=== PATIENT | female | born 2000 | race Caucasian/White ===

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

== ENCOUNTER 2019-06-13 15:53 | Emergency (ER) | payer OTHER ==
[2019-06-13 16:16] VITALS: BP 108/71
--- NOTE | 2019-06-13 16:59 | ED ---
Abdominal Pain/Female - HPI Summary HPI Summary: 19 yr old female with the complaint of lower abdominal pain. Her pain onset is over a week ago. Today pain is moderate and left sided in nature. It is associated with three loose stools today and emesis times one today. No fever or chills. She has a history of gluten intolerance. She has never seen a GI specialist. She has no radiation of her pain. - History of Current Complaint Chief Complaint: UCAbdominalPain Stated Complaint: ABDOMINAL PAIN Time Seen by Provider: 06/13/19 16:32 Hx Last Menstrual Period: 05/16/19 Pain Intensity: 2 Allergies/Adverse Reactions: Allergies Allergy/AdvReac Type Severity Reaction Status Date / Time azithromycin [From Zithromax] Allergy Hives Verified 06/13/19 16:05 Penicillins Allergy Hives Verified 06/13/19 16:05 EGGPLANT Allergy TONUE Uncoded 06/13/19 16:05 -EVANGELIST AND LIPS - ITCHY Home Medications: Home Medications Otc Laxative For Women 2 powder PRN 06/13/19 [History] PMH/Surg Hx/FS Hx/Imm Hx Endocrine/Hematology History: Denies: Hx Diabetes Cardiovascular History: Denies: Hx Hypertension, Hx Pacemaker/ICD History: Denies: Hx Renal Disease Sensory History: Denies: Hx Hearing Aid Psychiatric History: Denies: Hx Panic Disorder - Surgical History Surgery Procedure, Year, and Place: APPENDECTOMY. 07/02/17 -OPEN HEART- OPEN CORONARY ARTERY - NO IMPLANTS. 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 Denies: Traveled Outside the [place] in Last 30 Days - Family History Known Family History: Positive: None - Social History Alcohol Use: Rare Substance Use Type: Reports: None Smoking Status (MU): Never Smoked Tobacco Review of Systems Constitutional: Negative Positive: Abdominal Pain, Vomiting, Diarrhea, Nausea All Other Systems Reviewed And Are Negative: Yes Physical Exam Triage Information Reviewed: Yes Vital Signs On Initial Exam: Initial Vitals Temp Pulse Resp BP Pulse Ox 99 F 113 20 108/71 98 06/13/19 16:06 06/13/19 16:06 06/13/19 16:06 06/13/19 16:06 06/13/19 16:06 Vital Signs Reviewed: Yes Appearance: Positive: Well-Appearing, No Pain Distress Skin: Positive: Warm, Skin Color Reflects Adequate Perfusion Head/Face: Positive: Normal Head/Face Inspection Eyes: Positive: EOMI ENT: Positive: Normal ENT inspection Neck: Positive: Nontender Respiratory/Lung Sounds: Positive: Clear to Auscultation, Breath Sounds Present Cardiovascular: Positive: RRR. Negative: Murmur Abdomen Description: Positive: Other: - tender in the left lower abdomen. Musculoskeletal: Positive: Strength/ROM Intact Neurological: Positive: Normal, Sensory/Motor Intact, Alert, Oriented to Person Place, Time, CN Intact II-III Psychiatric: Positive: Normal Diagnostics - Vital Signs Vital Signs Temp Pulse Resp BP Pulse Ox 06/13/19 16:06 99 F 113 20 108/71 98 - Laboratory Lab Statement: Any lab studies that have been ordered have been reviewed, and results considered in the medical decision making process. Abdominal Pain Fem Course/Dx - Diagnoses Provider Diagnoses: Left lower quadrant abdominal pain Discharge ED - Sign-Out/Discharge Documenting (check all that apply): Patient Departure All imaging exams completed and their final reports reviewed: No Studies - Discharge Plan Condition: Good Disposition: HOME-RECOMMEND TO ED Patient Education Materials: Abdominal Pain (ED) Referrals: [facility] [Outside] No Primary Care Phys,NOPCP [Primary Care Provider] - Additional Instructions: YOU NEED TO GO TO THE ER NOW FOR FURTHER TESTING AND WORK UP OF YOUR ABDOMINAL PAIN.
== END 2019-06-13 17:12 | disposition home health service (06) ==
LOC: UCCORT 15:53
DX: R10.32 Left lower quadrant pain (principal); R11.2 Nausea with vomiting, unspecified; R19.7 Diarrhea, unspecified; Z88.0 Allergy status to penicillin; Z88.1 Allergy status to other antibiotic agents; Z91.012 Allergy to eggs
CPT/HCPCS: 81003; 84702; 99212; G0463

== ENCOUNTER 2019-08-16 11:30 | Emergency (ER) | payer OTHER ==
--- OUTSIDE RECORDS SUMMARY | 2019-08-16 11:46 | XMS REPORT | Summary of Care ---
:2000 Author Organization [facility] Address [address] [place] [address] Care Team Providers Name Role Phone Felicia Lopez MD Primary Care Provider Reason for Visit Reason Comments Post-op Encounter Details Date Type Department Care Team Description 07/05/2019 Office Visit [place] [facility] Heidy Bright, History of ovarian cystectomy (Primary Dx); [employer] [facility]ARR[facility] Amaro History of laparoscopy [address] [place] [phone] Allergies Active Allergy Reactions Severity Noted Date Comments Penicillins Hives 06/14/2019 Azithromycin Hives 06/14/2019 documented as of this encounter (statuses as of 07/05/2019) Medications Medication Sig Dispensed Refills Start Date End Date Status Norgestimate-Eth Take 1 tablet by 30 tablet 11 06/18/2019 06/17/2020 Active Estradiol 0.25-35 mouth daily MG-MCG Oral Tablet (ORTHO-CYCLEN) documented as of this encounter (statuses as of 07/05/2019) Active Problems Problem Noted Date Deficiency of von Willebrand factor 06/15/2019 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 Never 06/14/2019 How many drinks containing alcohol do you have on a typical Not asked day when you are drinking? How often do you have six or more drinks on one occasion? Not asked Sex Assigned at Date Recorded Not on file Job Start Date Occupation Industry Not on file Not on file Not on file Travel History Travel Start Travel End No recent travel history available. documented as of this encounter Last Filed Vital Signs Vital Sign Reading Time Taken Comments Blood Pressure 112/68 07/05/2019 11:51 AM EST Pulse 99 07/05/2019 11:51 AM EST Temperature - - Respiratory Rate - - Oxygen Saturation - - Inhaled Oxygen Concentration - - Weight 66.2 kg (146 lb) 07/05/2019 11:51 AM EST Height - - Body Mass Index 25.06 06/14/2019 3:28 PM EST documented in this encounter Progress Notes Heidy Bright MD - 07/05/2019 11:45 AM EST PATENT COUNSEL PostOp Visit CC/HPI/ROS: Angie Farfan is a 19 y.o. G0 here 18 days status post laparoscopic left ovarian cystectomy for large symptomatic ovarian cyst with no complaints today. Pain well controlled without pain medications. Reports normal urination and bowel movements. Denies drainage from abdominal incision(s), though states last week she saw her PCP because she was concerned about infection and PCP prescribed a topical ointment which she used for 7 days. Vaginal discharge: daily spotting - (re)started OCPs on day of discharge from hospital, would be expecting her period this week if she hadn't started the pills. A focused PATENT COUNSEL/ ROS was negative. History The patient's past medical/surgical/social/family histories, medications and allergies were reviewedand updated in [employer] at this visit. Pathology reviewed 06/17/19 LEFT OVARIAN CYST WALL, CYSTECTOMY: CORPUS LUTEUM CYST AND CYSTIC FOLLICLES. Objective: Visit Vitals BP 112/68 Pulse 99 Wt 146 lb (66.2 kg) LMP 06/18/2019 (Exact Date) BMI 25.06 kg/m General: This is a healthy-appearing female, well groomed in no apparent distress. Psych: Alert and oriented x3 and pleasant. Normal affect, good mood. Neuro: Moves all extremities, normal gait, CN 2-10 grossly intact Integument: Dry, warm, no edema, erythema or lesions. Abdomen: Well-healed infraumbilical/RLQ/LLQ incisions Assessment: Encounter Diagnoses Name Primary? History of ovarian cystectomy Yes History of laparoscopy Plan: 1. Continue current pain regimen, continue OCPs for suppression of ovulation 2. Lifting restrictions and pelvic rest to continue for next 3 weeks. Ok to ride exercise bike. 3. Call with fever above 100.4F, severe pain unrelieved by prescribed medications, or other concerns. 4. Encouraged pt to call the office with any questions documented in this encounter Plan of Treatment Health Maintenance Due Date Last Done Comments HIV Screening 02/12/2012 DTaP,Tdap,and Td Vaccines 02/22/2020 02/21/2010, 02/22/2003, (7 - Td) 05/26/2000, Additional history exists Chlamydia Screening 06/16/2020 06/16/2019 Pneumococcal Vaccine: 65+ 02[birth year]2064 Years (1 of 2 - PCV13) Hepatitis B Vaccines Completed 1999, 1999, 1999, Additional history exists HIB Vaccines Completed 02/29/2000, 1999, 1999, Additional history exists MMR Vaccines Completed 02/22/2003, 05/26/2000 IPV Vaccines Completed 02/27/2004, 08/14/2000, 1999, Additional history exists Varicella Vaccines Completed 06/08/2012, 02/17/2001 Hepatitis A Vaccines Completed 11/02/2012, 01/13/2012 HPV Vaccines Completed 02/08/2014, 01/18/2013, 11/02/2012 Influenza Vaccine Completed 06/15/2019 Pneumococcal Vaccine: Aged Out No longer eligible Pediatrics (0 to 5 Years) based on patient's age and At-Risk Patients (6 to to complete this topic 64 Years) documented as of this encounter Results Not on filedocumented in this encounter Visit Diagnoses Diagnosis History of ovarian cystectomy - Primary Personal history of surgery to other organs History of laparoscopy Personal history of surgery to other organs documented in this encounter
[2019-08-16 12:43] VITALS: BP 104/61
--- NOTE | 2019-08-16 14:25 | UC ---
Complaint Female HPI - HPI Summary HPI Summary: Pt presents with c/o of vaginal itching and discharge. Pt is concerned that she has a yeast infection "again". Pt has been treated 3 times in the last 6 months for yeast infection but has not actually been tested. I offered vaginal testing and pt declined all. - History Of Current Complaint Chief Complaint: UCGU Stated Complaint: PERSONAL Time Seen by Provider: 08/16/19 11:33 Hx Obtained From: Patient Hx Last Menstrual Period: "last week" ?: No Onset/Duration: Sudden Onset, Lasting Days, Still Present Timing: Constant Severity Initially: Mild Severity Currently: Mild Pain Intensity: 0 Character: Burning Aggravating Factor(s): Urination Alleviating Factor(s): Nothing Associated Signs And Symptoms: Positive: Vaginal Discharge, Genital Swelling Related Hx: Similar Episode/Dx as: - vaginal yeast infection - Risk Factors Ectopic Risk Factor: Negative Ovarian Torsion Risk Factor: Reproductive Age - Allergies/Home Medications Allergies/Adverse Reactions: Allergies Allergy/AdvReac Type Severity Reaction Status Date / Time azithromycin [From Zithromax] Allergy Hives Verified 08/16/19 12:37 Penicillins Allergy Hives Verified 08/16/19 12:37 EGGPLANT Allergy TONUE Uncoded 08/16/19 12:37 -EVANGELIST AND LIPS - ITCHY Home Medications: Home Medications Cetirizine* [ZyrTEC 10 MG TAB*] 10 mg PO DAILY 08/16/19 [History Confirmed 08/16] Norgestimate-Ethinyl Estradiol [Sprintec 28 Day Tablet] 1 tab PO DAILY 08/16/19 [History Confirmed 08/16/19] PMH/Surg Hx/FS Hx/Imm Hx Previously Healthy: Yes - Surgical History Surgical History: Yes Surgery Procedure, Year, and Place: Left Ovarian Cystectomy, 2019, [place]; Appendectomy, 2017, [place]; Open Coronary Artery "It was being squeezed ... they unroofed It"; 2017, [place]; [place] [facility] - Family History Known Family History: Positive: None - Social History Occupation: Student - [employer] Lives: Dormitory/Roommates Alcohol Use: Rare Substance Use Type: None Smoking Status (MU): Never Smoked Tobacco Have You Smoked in the Last Year: No - Immunization History Vaccination Up to Date: Yes Review of Systems All Other Systems Reviewed And Are Negative: Yes Constitutional: Positive: Negative Skin: Positive: Negative Eyes: Positive: Negative ENT: Positive: Negative Respiratory: Positive: Negative Cardiovascular: Positive: Negative Gastrointestinal: Positive: Negative Genitourinary: Positive: Vaginal/Penile Burning, Vaginal/Penile Itching, Vaginal /Penile Discharge Motor: Positive: Negative Neurovascular: Positive: Negative Musculoskeletal: Positive: Negative Neurological: Positive: Negative Psychological: Positive: Negative Is Patient Immunocompromised?: No Physical Exam Triage Information Reviewed: Yes Appearance: Well-Appearing Vital Signs: Initial Vital Signs Temp 98.6 F 08/16/19 12:35 Pulse 115 08/16/19 12:35 Resp 16 08/16/19 12:35 BP 104/61 08/16/19 12:35 Pulse Ox 100 08/16/19 12:35 Vital Signs Reviewed: Yes Eye Exam: Normal ENT Exam: Normal Dental Exam: Normal Neck exam: Normal Respiratory Exam: Normal Respiratory: Positive: No respiratory distress Cardiovascular Exam: Normal Abdominal Exam: Normal Abdomen Description: Positive: Nontender Pelvic Exam: Positive: Other - pt declined Musculoskeletal Exam: Normal Neurological Exam: Normal Psychological Exam: Normal Skin Exam: Normal Complaint Female Dx - Differential Dx/Diagnosis Differential Diagnosis/HQI/PQRI: Sexually Transmitted Disease, Urinary Tract Infection Provider Diagnosis: Vaginitis Discharge ED - Sign-Out/Discharge Documenting (check all that apply): Patient Departure All imaging exams completed and their final reports reviewed: No Studies - Discharge Plan Condition: Stable Disposition: HOME Prescriptions: Fluconazole 150 MG TAB* [Diflucan 150 MG TAB*] 150 mg PO UC ONCE #2 tablet Patient Education Materials: Vaginitis (ED) Referrals: [facility] [Outside] - If Needed No Primary Care Phys,NOPCP [Primary Care Provider] - - Billing Disposition and Condition Condition: STABLE Disposition: Home
== END 2019-08-16 14:31 | disposition home or self-care (01) ==
LOC: UCCORT 11:30
DX: N76.0 Acute vaginitis (principal); Z88.0 Allergy status to penicillin; Z88.1 Allergy status to other antibiotic agents; Z91.09 Other allergy status, other than to drugs and biological substances
CPT/HCPCS: 99212; G0463